=== PATIENT | male | born 1995 | race Caucasian/White ===

== ENCOUNTER → 2017-11-11 | Outpatient (CLI) | payer OTHER ==
--- NOTE | 2017-11-11 13:42 | RADIOLOGY REPORT (SQ) ---
EXAM DESCRIPTION: BARIUM SWALLOW ESOPHAGUS COMPLETED DATE/TIME: 11/11/2017 8:11 am REASON FOR STUDY: DYSPHAGIA (R13.10) R13.10 DYSPHAGIA, UNSPECIFIED COMPARISON: None. TECHNIQUE: Under fluoroscopic guidance, patient ingested effervescent granules followed by thick and thin barium. Fluoroscopic spot images and routine radiographic images acquired and stored on PACS. 12 MM BARIUM TABLET GIVEN: YES Mild circumferential narrowing in the mid 3rd of the esophagus at the level of the santos is present, a 12 mm barium tablet paused at this level for 5 minutes before dropping into the distal esophagus a nd stomach. This reproduced the patient's symptoms. LIMITATIONS: None. FLUOROSCOPY TIME: FLUORO TIME: 1 minutes 57 seconds 10 series of digital images saved to PACS. FINDINGS: NEUROMUSCULAR COORDINATION OF SWALLOW: Normal. No aspiration. ESOPHAGEAL MOTILITY: Normal peristalsis. No esophageal spasm. ESOPHAGEAL MUCOSA: There is very mild mucosal irregularity in the mid 3rd esophagus at the level of t he santos. This could represent reflux esophagitis. GASTRO-ESOPHAGEAL JUNCTION: There is a small sliding hiatal hernia without Schatzki's ring. Very mil d mucosal irregularity just above the GE junction, could reflect reflux esophagitis. We were unable to provoke gastroesophageal reflux while under fluoroscopy. NON-GI TRACT STRUCTURES: No significant finding. OTHER: No other significant finding. IMPRESSION: Mild mucosal irregularity in the mid 3rd esophagus at the level of the santos, and just above the GE junction in the distal esophagus. Findings are likely reflux esophagitis. 12 mm barium tablet paused in the mid 3rd of the esophagus at the level of esophagitis. COMMENT: Quality ID [id number]: Final reports for procedures using fluoroscopy that document radiation exp osure indices, or exposure time and number of fluorographic images (if radiation exposure indices are not available) TECHNICAL DOCUMENTATION: JOB ID: [id number] [employer]- All Rights Reserved Reading location - IP/workstation name: [id number]
== END ==
LOC: RAD 07:25
PROVIDERS: ATTEND Student in an Organized Health Care Education/Training Program
DX: R13.10 Dysphagia, unspecified (principal); K44.9 Diaphragmatic hernia without obstruction or gangrene; K20.9 Esophagitis, unspecified
CPT/HCPCS: 74220